=== PATIENT | female | born 1985 | race American Indian/Alaskan Native ===

== ENCOUNTER 2016-11-06 12:54 | Inpatient (IN) | payer BC ==
[2016-11-06] MEDS ORDERED: NORCO PO PRN (13:35)
[2016-11-06] MEDS: MORPHINE IV PRN (17:00)
[2016-11-06] MEDS: LACTATED RINGERS 1,000 ML IV SCH (17:00)
[2016-11-06] MEDS: LOVENOX SUB-Q SCH (21:26)
[2016-11-06] MEDS: ZOFRAN IV PRN (21:26)
[2016-11-07] MEDS: LACTATED RINGERS 1,000 ML IV SCH ×3 (00:02→17:22)
[2016-11-07] MEDS: MORPHINE IV PRN ×2 (00:31→07:43)
[2016-11-07 07:37] LABS: Magnesium 1.6 mg/dL (1.7-2.3); Phosphorous 2.6 mg/dL (2.5-4.5)
[2016-11-07] MEDS: ZOFRAN IV PRN ×2 (07:44→17:15)
[2016-11-07 10:23] LABS: Basophils % (Auto) 0.8 % (0.0-1.8); Eosinophils % (Auto) 6.3 % (0.0-4.3); Hematocrit 24.8 % (30.3-42.9); Hemoglobin 7.8 gm/dl (10.1-14.3); Mean Corpuscular HGB Conc 32 % (30-34); Platelet Count 282 K/mm3 (140-440); Red Blood Count 3.65 M/mm3 (3.65-5.03); Red Cell Distribution Width 19.6 % (13.2-15.2)
[2016-11-07 10:25] LABS: Mean Corpuscular Hemoglobin 21 pg (28-32); Mean Corpuscular Volume 68 fl (79-97)
[2016-11-07 10:35] LABS: Alanine Aminotransferase 27 units/L (7-56); Albumin 3.7 g/dL (3.9-5); Albumin/Globulin Ratio 1.4 %; Alkaline Phosphatase 77 units/L (35-129); BUN/Creatinine Ratio 8.33; Bilirubin,Total 0.8 mg/dL (0.1-1.2); Blood Urea Nitrogen 5 mg/dL (7-17); Calcium 8.3 mg/dL (8.4-10.2); Carbon Dioxide 23 mmol/L (22-30); Glucose 86 mg/dL (65-100); Total Protein 6.4 g/dL (6.3-8.2)
[2016-11-07 10:36] LABS: Chloride 107.2 mmol/L (98-107); Potassium 3.9 mmol/L (3.6-5.0); Sodium 142 mmol/L (137-145)
[2016-11-07 10:38] LABS: Anion Gap 16 mmol/L
--- NOTE | 2016-11-07 11:27 | Admit Criteria Form ---
Admission Criteria Documentation: DEHYDRATION Clinical Indications for Admission to Inpatient Care (Place 'X' for any and all applicable criteria): Admission is indicated for ANY ONE of the following (1)(2)(3)(4)(5): [ X]I. Inpatient admission required rather than observation care (see Dehydration: Observation Care guideline as appropriate) because of ANY ONE of the following: [ X]a) Vomiting that is severe or persistent [ ]b) Severe electrolyte abnormalities requiring inpatient care [ ]c) Hemodynamic instability [ ]d) IV fluid to replace significant ongoing losses (greater than 3 L/m2 per day (10) (11) [ ]e) Parenteral nutrition regimen that must be implemented on inpatient basis [X ]f) Other condition,treatment or monitoring requiring inpatient admission [ ]II. Serious cause for dehydration requiring acute hospitalization (eg, bowel obstruction, increased intracranial pressure, infectious cause) Extended stay beyond goal length of stay may be needed for(1)(3 )(4)(17): [ ]a) Chronic severe dehydration [ ]b) Persistent vital sign changes, severe electrolyte imbalance, or diagnosed cause of dehydration that requires continued hospitalization (eg, bowel obstruction, increased intracranial pressure) [ ]c) Older patients (65 years or older) [ ]d) Severe comorbid illness (eg, renal failure, heart failure, poorly controlled diabetes) The original [employer] content created by [employer] has been revised. The portions of the content which have been revised are identified through the use of italic text or in bold, and [facility] has neither reviewed nor approved the modified material. All other unmodified content is copyright [employer]. Please see references footnoted in the original [employer] edition 2016 Admission Criteria Met: Pending
--- NOTE | 2016-11-07 14:28 | History and Physical Report ---
History of Present Illness Date of examination: 11/07/16 Date of admission: 11/06/16 14:52 Chief complaint: Persisting Nausea and vomiting History of present illness: 31 yo F underwent laparoscopic sleeve gastrectomy on 10/22/2016. She was doing well at first but a few days ago she became nauseous and started vomiting. This became persistent and feels dehydrated. The n/v worsened overtime and was seen at the office and recommended to be admitted Denies abd pain, chest pain, diarrhea, fevers Past History Past Medical History: hypertension Past Surgical History: , Other (lap sleeve gastrectomy (Oct 11)) Social history: no significant social history Medications and Allergies Allergies Allergy/AdvReac Type Severity Reaction Status Date / Time hydrocodone AdvReac Hives Unverified 11/06/16 14:54 Active Meds: Active Medications Enoxaparin Sodium (Lovenox) 40 mg SUB-Q BID KEVEN Last Admin: 11/06/16 21:26 Dose: 40 mg Lactated Ringer's (Lactated Ringers) 1,000 mls @ 150 mls/hr IV DIRECT KEVEN Last Admin: 11/07/16 07:44 Dose: 150 mls/hr Morphine Sulfate (Morphine) 2 mg IV Q4H PRN PRN Reason: Pain, Moderate (4-6) Last Admin: 11/07/16 07:43 Dose: 2 mg Ondansetron HCl (Zofran) 4 mg IV Q8H PRN PRN Reason: Nausea And Vomiting Last Admin: 11/07/16 07:44 Dose: 4 mg Review of Systems - Constitutional weakness - Gastrointestinal abdominal pain (mild), nausea, vomiting Exam Vital Signs Temp Pulse Resp BP 98.1 F 77 16 121/60 11/06/16 16:00 11/06/16 16:00 11/06/16 16:00 11/06/16 16:00 Narrative exam: VSS, AF NAD Lungs Clear Heart RRR Abd soft,NT, ND, no rebound or guarding. Wounds OK Neuro: AAOx3 Results - Labs 11/07/16 10:04 11/07/16 10:04 Abnormal lab results 11/07/16 11/07/16 11/07/16 Range/Units 06:41 10:04 10:04 WBC 4.0 L (4.5-11.0) K/mm3 Hgb 7.8 L (10.1-14.3) gm/dl Hct 24.8 L (30.3-42.9) % MCV 68 L (79-97) fl MCH 21 L (28-32) pg RDW 19.6 H (13.2-15.2) % Lymph % (Auto) 37.0 H (13.4-35.0) % [place] % (Auto) 8.7 H (0.0-7.3) % Eos % (Auto) 6.3 H (0.0-4.3) % Chloride 107.2 H (98-107) mmol/L BUN 5 L (7-17) mg/dL Creatinine 0.6 L (0.7-1.2) mg/dL Calcium 8.3 L (8.4-10.2) mg/dL Magnesium 1.6 L (1.7-2.3) mg/dL Albumin 3.7 L (3.9-5) g/dL Diabetes panel 11/07/16 Range/Units 10:04 Sodium 142 (137-145) mmol/L Potassium 3.9 (3.6-5.0) mmol/L Chloride 107.2 H (98-107) mmol/L Carbon Dioxide 23 (22-30) mmol/L BUN 5 L (7-17) mg/dL Creatinine 0.6 L (0.7-1.2) mg/dL Glucose 86 (65-100) mg/dL Calcium 8.3 L (8.4-10.2) mg/dL AST 27 (5-40) units/L ALT 27 (7-56) units/L Alkaline Phosphatase 77 (35-129) units/L Total Protein 6.4 (6.3-8.2) g/dL Albumin 3.7 L (3.9-5) g/dL Calcium panel 11/07/16 11/07/16 Range/Units 06:41 10:04 Calcium 8.3 L (8.4-10.2) mg/dL Phosphorus 2.6 (2.5-4.5) mg/dL Albumin 3.7 L (3.9-5) g/dL Pituitary panel 11/07/16 Range/Units 10:04 Sodium 142 (137-145) mmol/L Potassium 3.9 (3.6-5.0) mmol/L Chloride 107.2 H (98-107) mmol/L Carbon Dioxide 23 (22-30) mmol/L BUN 5 L (7-17) mg/dL Creatinine 0.6 L (0.7-1.2) mg/dL Glucose 86 (65-100) mg/dL Calcium 8.3 L (8.4-10.2) mg/dL Adrenal panel 11/07/16 Range/Units 10:04 Sodium 142 (137-145) mmol/L Potassium 3.9 (3.6-5.0) mmol/L Chloride 107.2 H (98-107) mmol/L Carbon Dioxide 23 (22-30) mmol/L BUN 5 L (7-17) mg/dL Creatinine 0.6 L (0.7-1.2) mg/dL Glucose 86 (65-100) mg/dL Calcium 8.3 L (8.4-10.2) mg/dL Total Bilirubin 0.8 (0.1-1.2) mg/dL AST 27 (5-40) units/L ALT 27 (7-56) units/L Alkaline Phosphatase 77 (35-129) units/L Total Protein 6.4 (6.3-8.2) g/dL Albumin 3.7 L (3.9-5) g/dL Assessment and Plan 31 yo F with recent Lap Sleeve gastrectomy admited for intractable nausea vomiting Plan clears, IVF ressucitation lytes replacement nausea control UGIS - Patient Problems (1) Intractable nausea and vomiting Diagnosis Date: 11/07/16 Current Visit: Yes Status: Acute Qualifiers: Vomiting type: unspecified Qualified Code(s): R11.2 - Nausea with vomiting , unspecified
[2016-11-07] MEDS: LOVENOX SUB-Q SCH ×2 (17:21→22:15)
[2016-11-08] MEDS: ZOFRAN IV PRN ×2 (00:50→09:03)
[2016-11-08] MEDS: MORPHINE IV PRN ×2 (01:30→09:02)
[2016-11-08] MEDS: LACTATED RINGERS 1,000 ML IV SCH ×2 (01:35→09:03)
[2016-11-08] MEDS: LOVENOX SUB-Q SCH (09:49)
[2016-11-08] MEDS ORDERED: PHENERGAN PO PRN (10:42)
[2016-11-08] MEDS ORDERED: MAGNESIUM SULFATE IV ONE (10:45)
[2016-11-08] MEDS ORDERED: TRANSDERM-SCOP TD SCH (11:00)
--- NOTE | 2016-11-08 11:02 | Fluoroscopy Report ---
UPPER GI SERIES AND SMALL BOWEL FOLLOW-THROUGH: Patient with recent gastric stapling and hiatus hernia repair presenting with periodic emesis. The patient was initially given water-soluble contrast which passed readily into the stomach. The esophagus is not dilated and drained rapidly. Barium was then used for the additional evaluation. There is a somewhat thickened distal esophageal fold with distal deformity of the esophagus. No ulcerations identified. The gastric contour is somewhat diminished in volume consistent with stapling. There is no leakage and there is rapid exit of contrast from the stomach into the duodenum. No gastric or duodenal ulcer is identified. Barium was followed through the small bowel reaching the colon between an hour 8. No small bowel abnormality appreciated. IMPRESSIONS: 1. Intact gastric stapling. 2. Irregularity of the distal esophagus most likely secondary to the surgical procedure. Correlation with the surgical procedure advised. 3. Unremarkable proximal and mid small bowel with limited evaluation of distal small bowel.
[2016-11-08] MEDS ORDERED: MAGNESIUM SULFATE 2GM/50ML 50 ML IV ONE (12:00)
[2016-11-08] MEDS ORDERED: D5W/0.45% NACL/KCL 30 MEQ 1,000 ML IV SCH (12:00)
--- NOTE | 2016-11-08 12:49 | Progress Note ---
Assessment and Plan 31 yo F with intractable nausea and vomiting UGIS reviewed with radiologist. Shows no mechanical obstruction. We will maximize symptomatic control of nausea. Clears. Possible d/c later today - Patient Problems (1) Intractable nausea and vomiting Diagnosis Date: 11/07/16 Current Visit: Yes Status: Acute Qualifiers: Vomiting type: unspecified Qualified Code(s): R11.2 - Nausea with vomiting , unspecified Subjective Date of service: 11/08/16 Patient Reports: Positive: no new complaints, feels better (but still with some nausea/vomiting) Objective Vital Signs - 12hr 11/08/16 11/08/16 11/08/16 04:00 08:00 09:12 Temperature 99.8 F H 98.4 F Pulse Rate [ 85 78 From Monitor] Respiratory 18 18 Rate Blood Pressure 118/80 106/64 [Left Arm] O2 Sat by Pulse 97 99 Oximetry - General physical appearance no distress, no pain - Eyes PERRL - Respiratory normal respiratory effort, clear to auscultation - Abdomen soft, bowel sounds normal - Neurologic normal coordination, normal sensation - Labs 11/07/16 10:04 11/07/16 10:04 - Imaging Additional Studies: UGIS: showing no mechanical obstruction. Contrast in colon
[2016-11-08] MEDS: ATIVAN IV SCH ×2 (13:00→20:01)
[2016-11-08] MEDS: REGLAN IV SCH ×2 (13:00→17:00)
[2016-11-08 15:07] LABS: Basophils % (Auto) 0.7 % (0.0-1.8); Hematocrit 25.4 % (30.3-42.9); Mean Corpuscular HGB Conc 32 % (30-34); Platelet Count 276 K/mm3 (140-440); Red Blood Count 3.77 M/mm3 (3.65-5.03); Red Cell Distribution Width 19.1 % (13.2-15.2); White Blood Count 4.1 K/mm3 (4.5-11.0)
[2016-11-08 15:13] LABS: Mean Corpuscular Hemoglobin 21 pg (28-32); Mean Corpuscular Volume 68 fl (79-97)
[2016-11-08 15:27] LABS: Alanine Aminotransferase 22 units/L (7-56); Albumin 3.8 g/dL (3.9-5); Albumin/Globulin Ratio 1.4 %; Alkaline Phosphatase 78 units/L (35-129); Anion Gap 18 mmol/L; Bilirubin,Total 0.9 mg/dL (0.1-1.2); Blood Urea Nitrogen 3 mg/dL (7-17); Calcium 8.4 mg/dL (8.4-10.2); Carbon Dioxide 22 mmol/L (22-30); Chloride 99.4 mmol/L (98-107); Glucose 83 mg/dL (65-100); Potassium 3.4 mmol/L (3.6-5.0); Sodium 136 mmol/L (137-145); Total Protein 6.6 g/dL (6.3-8.2)
[2016-11-08] MEDS ORDERED: KCL 10MEQ/100ML 100 ML IV STA (16:00)
--- NOTE | 2016-11-08 17:07 | Discharge Summary ---
Providers - Providers Date of Admission: 11/06/16 14:52 Date of discharge: 11/08/16 Attending physician: ASAD VERA Primary care physician: FINISHING ROOM OPERATOR Hospitalization Reason for admission: Intractable nausea and vomiting Condition: Stable Disposition: DISCHARGED TO HOME OR SELFCARE - Discharge Diagnoses (1) Intractable nausea and vomiting Status: Acute Qualifiers: Vomiting type: unspecified Qualified Code(s): R11.2 - Nausea with vomiting , unspecified Core Measure Documentation - Palliative Care Palliative Care/ Comfort Measures: Not Applicable - Core Measures Any of the following diagnoses?: none Exam - Constitutional Vitals: Temp Pulse Resp BP Pulse Ox 98.4 F 78 18 106/64 99 11/08/16 08:00 11/08/16 08:00 11/08/16 08:00 11/08/16 08:00 11/08/16 09:12 General appearance: Present: no acute distress, well-nourished - EENT ENT: hearing intact, clear oral mucosa - Neck Neck: Present: supple, normal ROM - Respiratory Respiratory effort: normal Respiratory: bilateral: CTA - Cardiovascular Rhythm: regular - Extremities Extremities: pulses symmetrical, No edema - Abdominal General gastrointestinal: Present: soft, non-tender, non-distended, normal bowel sounds, other (wounds c/d/i) - Neurologic Neurologic: moves all extremities Plan Activity: advance as tolerated Weight Bearing Status: Full Weight Bearing Diet: other (Bariatric stage 1 and advance to stage 2 as tolerated) Wound: open to air, keep clean and dry Special Instructions: no heavy lifting Follow up with: ELLA JOY MD [Primary Care Provider] - 7 Days ASAD VERA MD [Staff Physician] - 7 Days
[2016-11-08 17:23] VITALS: BP 128/76
== END 2016-11-08 20:00 | disposition home or self-care (01) | DRG 641 ==
LOC: 3A 12:54 → UNDOADMIN 12:54 → 3A 14:52
PROVIDERS: ADMIT Specialist; ATTEND Specialist
DX: E86.0 Dehydration (principal); Z68.41 Body mass index [BMI] 40.0-44.9, adult; I10 Essential (primary) hypertension; R11.2 Nausea with vomiting, unspecified; Z90.3 Acquired absence of stomach [part of]; Z88.5 Allergy status to narcotic agent
CPT/HCPCS: 36415; 74249; 80053; 83735; 84100; 85025; J1650; J2060; J2270; J2405; J2765; J3475; J3480; J7120; Q0169; Q9963

== ENCOUNTER 2016-12-04 13:55 | Inpatient (IN) | payer BC ==
--- NOTE | 2016-12-04 17:22 | Admit Criteria Form ---
Admission Criteria Documentation: VOMITING Clinical Indications for Admission to Inpatient Care ( Place 'X' for any and all applicable criteria): Admission is indicated for ANY ONE of the following(1)(2)(3): [X ]I. Inpatient admission required rather than observation care because of ANY ONE of the following: [ ]i) Hemodynamic instability that is severe or persistent [X ]ii) Vomiting that is severe or persistent [ ]iii) Severe electrolyte abnormalities requiring inpatient care [ ]iv) Severe pain requiring acute inpatient management [ ]v) High fever or infection requiring inpatient admission as indicated by ANY ONE of the following(7)(8): [ ]1) Appropriate outpatient or observation care antimicrobial treatment unavailable, not effective, or not feasible [ ]2) Documented bacteremia [ ]3) Temp >104.9 degrees F (40.5 degrees C) (oral) [ ]4) Temp >103.1 degrees F (39.5 C) (oral) or <96.8 degrees F (36 C) (rectal) that does not respond to all emergency treatment measures [ ]vi) Acute renal failure [ ]vii) IV fluid to replace significant ongoing losses (greater than 3 L/m2 per day) [ ]viii) Parenteral nutrition regimen that must be implemented on inpatient basis [ ]ix) Other condition, treatment or monitoring requiring inpatient admission [ ]II. Complete or partial gastrointestinal obstruction [ ]III. Other cause of vomiting requiring hospitalization (eg, poisoning, increased intracranial pressure) [ ]IV. Vomiting due to significant metabolic derangement (eg, severe hypercalcemia, diabetic ketoacidosis) Extended stay beyond goal length of stay may be needed for(1)(4): [ ]a) Severe vomiting [ ]b) Persistent vomiting, vital sign changes, severe electrolyte imbalance , or diagnosed cause of vomiting that requires continued hospitalization (eg, gastrointestinal obstruction , increased intracranial pressure) [ ]c) Surgery to treat identified causes of vomiting (eg, bowel obstruction , intracranial process) [ ]d) Comorbid illness that requires inpatient care (eg, acute heart failure , renal failure) [ ]e) Need for inpatient endoscopy The original [facility] [employer] content created by [employer] has been revised. The portions of the content which have been revised are identified through the use of italic text or in bold, and [facility] [employer] has neither reviewed nor approved the modified material. All other unmodified content is copyright [facility]. Please see references footnoted in the original [facility] edition 2016 Admission Criteria Met: Yes
[2016-12-04] MEDS ORDERED: TYLENOL PO PRN (19:29)
[2016-12-04] MEDS ORDERED: MILK OF MAGNESIA PO PRN (19:29)
[2016-12-04] MEDS ORDERED: DULCOLAX PR PRN (19:29)
--- NOTE | 2016-12-04 20:01 | History and Physical Report ---
History of Present Illness Date of examination: 12/04/16 Date of admission: 12/04/16 14:37 Chief complaint: Vomiting For last 6 weeks off and on History of present illness: Patient is a 31 y/o AAF admitted directly from Dr Marcin Porras's office for persistent vomiting from Oct 22 2016 when she had a Gastric sleeve surgery.Unable to tolerate solids.No abdominal pain Past History Past Medical History: hypertension Past Surgical History: Other (Gastric Sleeve surgery) Social history: no significant social history, lives with family Family history: hypertension Medications and Allergies Allergies Allergy/AdvReac Type Severity Reaction Status Date / Time hydrocodone AdvReac Hives Unverified 11/06/16 14:54 Active Meds: Active Medications Acetaminophen (Tylenol) 650 mg PO Q4H PRN PRN Reason: Pain MILD(1-3)/Fever >100.5/ZEPEDA Bisacodyl (Dulcolax) 10 mg [place] QDAY PRN PRN Reason: Constipation unrelieved by MOM Enoxaparin Sodium (Lovenox) 40 mg SUB-Q QDAY KEVEN Hydromorphone HCl (Dilaudid) 1 mg IV Q3H PRN PRN Reason: Pain , Severe (7-10) Dextrose/Sodium Chloride (D5ns) 1,000 mls @ 100 mls/hr IV DIRECT KEVEN Magnesium Hydroxide (Milk Of Magnesia) 30 ml PO Q4H PRN PRN Reason: Constipation Ondansetron HCl (Zofran) 4 mg IV Q3H PRN PRN Reason: N/V unrelieved by Reglan Review of Systems All systems: negative Constitutional: weight loss (Lost 40 lbs sec to Gastric sleeve surgery) Gastrointestinal: nausea, vomiting Exam - Constitutional Vitals: Temp Pulse Resp BP Pulse Ox 98.7 F 72 18 144/83 97 12/04/16 14:45 12/04/16 14:45 12/04/16 14:45 12/04/16 14:45 12/04/16 17:32 General appearance: Present: no acute distress, well-nourished - EENT Eyes: Present: PERRL ENT: hearing intact, clear oral mucosa - Neck Neck: Present: supple, normal ROM - Respiratory Respiratory effort: normal Respiratory: bilateral: CTA - Cardiovascular Heart Sounds: Present: S1 & S2. Absent: rub, click - Extremities Extremities: pulses symmetrical, No edema Peripheral Pulses: within normal limits - Abdominal General gastrointestinal: Present: soft, non-tender, non-distended, normal bowel sounds Female genitourinary: Present: normal - Integumentary Integumentary: Present: clear, warm, dry - Musculoskeletal Musculoskeletal: gait normal, strength equal bilaterally - Psychiatric Psychiatric: appropriate mood/affect, intact judgment & insight - Neurologic Neurologic: CNII-XII intact, moves all extremities Results - Labs CBC & Chem 7: 12/05/16 05:50 12/05/16 05:50 Assessment and Plan - Patient Problems (1) Intractable nausea and vomiting Onset Date: 11/07/16 Current Visit: No Status: Acute Qualifiers: Vomiting type: V Plan to address problem: Sec to Gastric sleeve surgery.Had Barium studies which did not show any outlet obstruction.GI consulted for possible EGD.DDX ??Gastritis (2) Dehydration Current Visit: Yes Status: Acute Plan to address problem: IV fluids for now (3) Hypokalemia Current Visit: Yes Status: Acute Plan to address problem: Supplemented (4) HTN (hypertension) Current Visit: Yes Status: Chronic Qualifiers: Hypertension type: essential hypertension Qualified Code(s): I10 - Essential (primary) hypertension (5) DVT prophylaxis Current Visit: Yes Status: Acute Plan to address problem: Lovenox 40 mg sq qd
[2016-12-04 20:21] LABS: Basophils % (Auto) 1.2 % (0.0-1.8); Eosinophils % (Auto) 2.9 % (0.0-4.3); Hematocrit 25.9 % (30.3-42.9); Mean Corpuscular HGB Conc 31 % (30-34); Platelet Count 249 K/mm3 (140-440); Red Blood Count 3.87 M/mm3 (3.65-5.03); Red Cell Distribution Width 18.4 % (13.2-15.2); White Blood Count 4.3 K/mm3 (4.5-11.0)
[2016-12-04 20:27] LABS: Mean Corpuscular Hemoglobin 21 pg (28-32); Mean Corpuscular Volume 67 fl (79-97)
[2016-12-04] MEDS: ZOFRAN IV PRN (21:00)
[2016-12-04] MEDS: LOVENOX SUB-Q SCH (21:04)
[2016-12-04] MEDS: D5NS 1,000 ML IV SCH (21:04)
[2016-12-04] MEDS: DILAUDID IV PRN (22:42)
[2016-12-05 06:33] LABS: Basophils % (Auto) 1.2 % (0.0-1.8); Eosinophils % (Auto) 4.8 % (0.0-4.3); Hematocrit 23.9 % (30.3-42.9); Hemoglobin 7.6 gm/dl (10.1-14.3); Mean Corpuscular HGB Conc 32 % (30-34); Platelet Count 212 K/mm3 (140-440); Red Blood Count 3.58 M/mm3 (3.65-5.03); Red Cell Distribution Width 18.8 % (13.2-15.2); White Blood Count 3.5 K/mm3 (4.5-11.0)
[2016-12-05 06:34] LABS: Mean Corpuscular Hemoglobin 21 pg (28-32); Mean Corpuscular Volume 67 fl (79-97)
[2016-12-05 06:46] LABS: Alanine Aminotransferase 15 units/L (7-56); Albumin 3.5 g/dL (3.9-5); Albumin/Globulin Ratio 1.5 %; Alkaline Phosphatase 60 units/L (35-129); BUN/Creatinine Ratio 8.33; Bilirubin,Total 0.3 mg/dL (0.1-1.2); Blood Urea Nitrogen 5 mg/dL (7-17); Calcium 8.3 mg/dL (8.4-10.2); Carbon Dioxide 23 mmol/L (22-30); Glucose 105 mg/dL (65-100); Total Protein 5.8 g/dL (6.3-8.2)
[2016-12-05 06:47] LABS: Anion Gap 15 mmol/L; Chloride 102.7 mmol/L (98-107); Sodium 138 mmol/L (137-145)
[2016-12-05 06:52] LABS: Potassium 2.8 mmol/L (3.6-5.0)
[2016-12-05] MEDS: LOVENOX SUB-Q SCH (10:07)
[2016-12-05] MEDS: DILAUDID IV PRN ×4 (10:42→22:06)
[2016-12-05] MEDS: ZOFRAN IV PRN ×4 (10:43→22:07)
--- NOTE | 2016-12-05 11:23 | Progress Note ---
Assessment and Plan Assessment and plan: 1. Intractable nausea and vomiting. Etiology secondary to gastric sleeve surgery. Patient had barium studies which did not show any eyelid obstruction. Await GI consultation. 2. Acute renal failure. Etiology secondary to vasomotor nephropathy/ dehydration. Patient will continue with IV fluid hydration. 3. Hypokalemia. Replete potassium. 4. Hypertension. Continue antihypertensive medications as needed. 5. DVT prophylaxis. Lovenox daily. History Interval history: 31-year-old female with recent history of gastric sleeve surgery presents with intractable nausea and vomiting. Patient denies any hematemesis, hematochezia or melena. No diarrhea. Hospitalist Physical - Constitutional Vitals: Temp Pulse Resp BP Pulse Ox 98.1 F 58 L 20 106/60 98 12/05/16 08:00 12/05/16 08:00 12/05/16 10:42 12/05/16 08:00 12/05/16 08:00 General appearance: Present: no acute distress, well-nourished - EENT Eyes: Present: PERRL, EOM intact ENT: hearing intact, clear oral mucosa, dentition normal - Neck Neck: Present: supple, normal ROM - Respiratory Respiratory effort: normal Respiratory: bilateral: CTA - Cardiovascular Rhythm: regular Heart Sounds: Present: S1 & S2. Absent: gallop, rub - Extremities Extremities: no ischemia, No edema, Full ROM - Abdominal General gastrointestinal: soft, non-tender, non-distended, normal bowel sounds - Integumentary Integumentary: Present: clear, warm, dry - Neurologic Neurologic: CNII-XII intact, moves all extremities Results - Labs CBC & Chem 7: 12/05/16 05:50 12/05/16 05:50 Labs: Laboratory Last Values WBC 3.5 K/mm3 (4.5-11.0) L 12/05/16 05:50 RBC 3.58 M/mm3 (3.65-5.03) L 12/05/16 05:50 Hgb 7.6 gm/dl (10.1-14.3) L 12/05/16 05:50 Hct 23.9 % (30.3-42.9) L 12/05/16 05:50 MCV 67 fl (79-97) L 12/05/16 05:50 MCH 21 pg (28-32) L 12/05/16 05:50 MCHC 32 % (30-34) 12/05/16 05:50 RDW 18.8 % (13.2-15.2) H 12/05/16 05:50 Plt Count 212 K/mm3 (140-440) 12/05/16 05:50 Lymph % (Auto) 45.9 % (13.4-35.0) H 12/05/16 05:50 [place] % (Auto) 10.3 % (0.0-7.3) H 12/05/16 05:50 Eos % (Auto) 4.8 % (0.0-4.3) H 12/05/16 05:50 Baso % (Auto) 1.2 % (0.0-1.8) 12/05/16 05:50 Lymph # 1.6 K/mm3 (1.2-5.4) 12/05/16 05:50 [place] # 0.4 K/mm3 (0.0-0.8) 12/05/16 05:50 Eos # 0.2 K/mm3 (0.0-0.4) 12/05/16 05:50 Baso # 0.0 K/mm3 (0.0-0.1) 12/05/16 05:50 Seg Neutrophils % 37.8 % (40.0-70.0) L 12/05/16 05:50 Seg Neutrophils # 1.3 K/mm3 (1.8-7.7) L 12/05/16 05:50 Sodium 138 mmol/L (137-145) 12/05/16 05:50 Potassium 2.8 mmol/L (3.6-5.0) L* 12/05/16 05:50 Chloride 102.7 mmol/L (98-107) 12/05/16 05:50 Carbon Dioxide 23 mmol/L (22-30) 12/05/16 05:50 Anion Gap 15 mmol/L 12/05/16 05:50 BUN 5 mg/dL (7-17) L 12/05/16 05:50 Creatinine 0.6 mg/dL (0.7-1.2) L 12/05/16 05:50 Estimated GFR > 60 ml/min 12/05/16 05:50 BUN/Creatinine Ratio 8.33 % 12/05/16 05:50 Glucose 105 mg/dL (65-100) H 12/05/16 05:50 Hemoglobin A1c 4.9 % (4-6) 12/04/16 20:11 Calcium 8.3 mg/dL (8.4-10.2) L 12/05/16 05:50 Total Bilirubin 0.3 mg/dL (0.1-1.2) 12/05/16 05:50 AST 14 units/L (5-40) 12/05/16 05:50 ALT 15 units/L (7-56) 12/05/16 05:50 Alkaline Phosphatase 60 units/L (35-129) 12/05/16 05:50 Total Protein 5.8 g/dL (6.3-8.2) L 12/05/16 05:50 Albumin 3.5 g/dL (3.9-5) L 12/05/16 05:50 Albumin/Globulin Ratio 1.5 % 12/05/16 05:50
[2016-12-05] MEDS: KCL 10MEQ/100ML 10 MEQ/100 ML BAG IV SCH ×4 (11:46→19:06)
--- NOTE | 2016-12-05 14:25 | Event Note ---
Date: 12/05/16 Consult noted. Patient sent from Dr. Burch office s/p gastric sleeve surgery. Dr. Burch comes to [facility] and in the past prefers to see his own patients and perform testing himself. I have d/w Michael, primary nurse, and she will notify the primary MD to contact Dr. Burch. Please do not hesitate to call if needed. Thank You, Mayra Medina, ACNP-BC
--- NOTE | 2016-12-05 16:04 | Consultation ---
History of Present Illness Consult date: 12/05/16 - History of present illness History of present illness: Patient complains of persistent nause and vomiting x 1 month. Patient has been to the ER 3 times over the past month with the most recent visit being 2 day ago. Patient was also admitted to [facility] on 11/07/16 where she completed an upper GI series. Patient states that at first she was able to keep fluids down but couldn't tolerate solids. Over the past 2 weeks she hasn't been able to tolerate liquids. Patient has been consistently taking Reglan and Phenergan without relief of symptoms. Past History Past Medical History: GERD, hypertension, other (sleep apnea) Past Surgical History: Other (Gastric Sleeve surgery) Social history: no significant social history, lives with family Family history: hypertension Medications and Allergies Allergies Allergy/AdvReac Type Severity Reaction Status Date / Time hydrocodone AdvReac Hives Unverified 11/06/16 14:54 Active Meds: Active Medications Acetaminophen (Tylenol) 650 mg PO Q4H PRN PRN Reason: Pain MILD(1-3)/Fever >100.5/ZEPEAD Bisacodyl (Dulcolax) 10 mg [place] QDAY PRN PRN Reason: Constipation unrelieved by MOM Enoxaparin Sodium (Lovenox) 40 mg SUB-Q QDAY KEVEN Last Admin: 12/05/16 10:07 Dose: 40 mg Hydromorphone HCl (Dilaudid) 1 mg IV Q3H PRN PRN Reason: Pain , Severe (7-10) Last Admin: 12/05/16 15:39 Dose: 1 mg Dextrose/Sodium Chloride (D5ns) 1,000 mls @ 100 mls/hr IV DIRECT KEVEN Last Admin: 12/04/16 21:04 Dose: 100 mls/hr Magnesium Hydroxide (Milk Of Magnesia) 30 ml PO Q4H PRN PRN Reason: Constipation Ondansetron HCl (Zofran) 4 mg IV Q3H PRN PRN Reason: N/V unrelieved by Reglan Last Admin: 12/05/16 15:40 Dose: 4 mg Review of Systems - Constitutional other - Gastrointestinal nausea, vomiting Exam Vital Signs Temp Pulse Resp BP Pulse Ox 98.7 F 72 18 144/83 100 12/04/16 14:45 12/04/16 14:45 12/04/16 14:45 12/04/16 14:45 12/04/16 14:45 - General physical appearance Positive: well developed, well nourished - Respiratory Positive: normal expansion, normal respiratory effort - Abdomen Abdomen: Present: soft, bowel sounds normal, surgical scars - Psychiatric Psychiatric: appropriate mood/affect Results - Labs 12/05/16 05:50 12/05/16 05:50 Abnormal lab results 12/04/16 12/05/16 12/05/16 Range/Units 20:11 05:50 05:50 WBC 4.3 L 3.5 L (4.5-11.0) K/mm3 RBC 3.58 L (3.65-5.03) M/mm3 Hgb 8.0 L 7.6 L (10.1-14.3) gm/dl Hct 25.9 L 23.9 L (30.3-42.9) % MCV 67 L 67 L (79-97) fl MCH 21 L 21 L (28-32) pg RDW 18.4 H 18.8 H (13.2-15.2) % Lymph % (Auto) 36.6 H 45.9 H (13.4-35.0) % [place] % (Auto) 9.7 H 10.3 H (0.0-7.3) % Eos % (Auto) 4.8 H (0.0-4.3) % Seg Neutrophils % 37.8 L (40.0-70.0) % Seg Neutrophils # 1.3 L (1.8-7.7) K/mm3 Potassium 2.8 L* (3.6-5.0) mmol/L BUN 5 L (7-17) mg/dL Creatinine 0.6 L (0.7-1.2) mg/dL Glucose 105 H (65-100) mg/dL Calcium 8.3 L (8.4-10.2) mg/dL Total Protein 5.8 L (6.3-8.2) g/dL Albumin 3.5 L (3.9-5) g/dL Diabetes panel 12/04/16 12/05/16 Range/Units 20:11 05:50 Sodium 138 (137-145) mmol/L Potassium 2.8 L* (3.6-5.0) mmol/L Chloride 102.7 (98-107) mmol/L Carbon Dioxide 23 (22-30) mmol/L BUN 5 L (7-17) mg/dL Creatinine 0.6 L (0.7-1.2) mg/dL Glucose 105 H (65-100) mg/dL Hemoglobin A1c 4.9 (4-6) % Calcium 8.3 L (8.4-10.2) mg/dL AST 14 (5-40) units/L ALT 15 (7-56) units/L Alkaline Phosphatase 60 (35-129) units/L Total Protein 5.8 L (6.3-8.2) g/dL Albumin 3.5 L (3.9-5) g/dL Calcium panel 12/05/16 Range/Units 05:50 Calcium 8.3 L (8.4-10.2) mg/dL Albumin 3.5 L (3.9-5) g/dL Pituitary panel 12/05/16 Range/Units 05:50 Sodium 138 (137-145) mmol/L Potassium 2.8 L* (3.6-5.0) mmol/L Chloride 102.7 (98-107) mmol/L Carbon Dioxide 23 (22-30) mmol/L BUN 5 L (7-17) mg/dL Creatinine 0.6 L (0.7-1.2) mg/dL Glucose 105 H (65-100) mg/dL Calcium 8.3 L (8.4-10.2) mg/dL Adrenal panel 12/05/16 Range/Units 05:50 Sodium 138 (137-145) mmol/L Potassium 2.8 L* (3.6-5.0) mmol/L Chloride 102.7 (98-107) mmol/L Carbon Dioxide 23 (22-30) mmol/L BUN 5 L (7-17) mg/dL Creatinine 0.6 L (0.7-1.2) mg/dL Glucose 105 H (65-100) mg/dL Calcium 8.3 L (8.4-10.2) mg/dL Total Bilirubin 0.3 (0.1-1.2) mg/dL AST 14 (5-40) units/L ALT 15 (7-56) units/L Alkaline Phosphatase 60 (35-129) units/L Total Protein 5.8 L (6.3-8.2) g/dL Albumin 3.5 L (3.9-5) g/dL
[2016-12-05] MEDS: D5NS 1,000 ML IV SCH (19:05)
[2016-12-05] MEDS ORDERED: APRESOLINE IV PRN (21:10)
[2016-12-06] MEDS: DILAUDID IV PRN ×4 (01:07→21:46)
[2016-12-06] MEDS: ZOFRAN IV PRN ×3 (01:08→07:26)
--- NOTE | 2016-12-06 02:43 | Consultation ---
REFERRING PHYSICIAN: Efrain Hughes MD INDICATION: Nausea and vomiting. HISTORY OF PRESENT ILLNESS: The patient is a 31-year-old black female, status post gastric sleeve on 10/22/2016, now being seen for nausea and vomiting. The patient reports no history of nausea, vomiting, or other symptoms prior to having surgery. She reports since that time, she has had recurrent nausea, vomiting with eating or drinking. She reports no diarrhea or constipation. She denies any NSAID use. Denies any hematemesis or black tarry stools. The patient reports that since that time she has had evaluation for obstruction, which was negative. She reports she has also had a CT scan which was also negative. Upper GI small bowel follow through done a couple of weeks ago was negative. GI is consulted to aid in management. PAST MEDICAL HISTORY: Hypertension. PAST SURGICAL HISTORY: Status post recent gastric sleeve. MEDICATIONS: See chart. ALLERGIES: No known drug allergies. SOCIAL HISTORY: Denies alcohol, tobacco, or drug abuse. FAMILY HISTORY: Negative for colon cancer, IBD, or liver disease. REVIEW OF SYSTEMS: GENERAL: Reports mild weakness. HEENT: No visual complaints or tinnitus. PULMONARY: No shortness of breath. CARDIOVASCULAR: No chest pain. GASTROINTESTINAL: Reports nausea and vomiting. All points of 13-point review of systems otherwise negative. PHYSICAL EXAMINATION: VITAL SIGNS: Temperature of 98.3, pulse , respirations 18, blood pressure 134/86. GENERAL: Fairly nourished, obese black female, in no acute distress. HEENT: Pupils equal, round, reactive to light and accommodation. Extraocular movements intact. PULMONARY: Clear to auscultation bilaterally. CARDIOVASCULAR: Regular rate and rhythm. Normal S1, S2. ABDOMEN: Positive bowel sounds, soft. SKIN: No obvious rashes. LABORATORY DATA: Pertinent for white count of 3.5, hemoglobin and hematocrit of 7.6 and 23.9, platelet count of 212. Chem-7 pertinent for potassium of 2.8. LFTs within normal limits. ASSESSMENT AND PLAN: A 31-year-old black female, status post recent gastric sleeve in September, now recurrent nausea, vomiting with recent follow through exam showing no signs of obstruction. Possibility of peptic ulcer disease versus gastritis versus gallbladder versus functional versus other. PLAN: 1. PPI IV daily. 2. We will review imaging done recently. 3. Avoid NSAIDs and aspirin. 4. We will plan for EGD in a.m., with further recommendation based on the procedure results. JOB# [id number] CAB/NTS
[2016-12-06] MEDS: D5NS 1,000 ML IV SCH (04:25)
[2016-12-06] MEDS: BENADRYL IV PRN ×2 (06:29→21:45)
[2016-12-06] MEDS ORDERED: WATER FOR IRRIG STERILE IR ONE (07:19)
--- NOTE | 2016-12-06 07:58 | Anesthesia Day of Surgery ---
Anesthesia Day of Surgery - Day of Surgery Patient Examined: Yes Patient H&P Reviewed: Yes Patient is NPO: Yes
--- NOTE | 2016-12-06 07:58 | Anesthesia Consultation ---
Anesthesia Consult and Med Hx Date of service: 12/06/16 - Airway Anesthetic Teeth Evaluation: Good ROM Head & Neck: Adequate Mental/Hyoid Distance: Adequate Mallampati Class: Class II Intubation Access Assessment: Probably Good - Pulmonary Exam CTA: Yes - Cardiac Exam Cardiac Exam: RRR - Pre-Operative Health Status ASA Pre-Surgery Classification: ASA2 Proposed Anesthetic Plan: MAC - Pre-Anesthesia Comment Pre-Anesthesia Comments: Pt is sp gastric sleeve, presented today for N/V - Pulmonary Hx Smoking: No Hx Asthma: No Hx Pneumonia: No Hx Sleep Apnea: Yes (stopped use after gastric sleeve) - Cardiovascular System Hx Hypertension: Yes (SINCE 2011) - Central Nervous System Hx Psychiatric Problems: No - Endocrine Hx Renal Disease: No Hx Liver Disease: No Hx Non-Insulin Dependent Diabetes: No - Hematic Hx Anemia: Yes - Other Systems Hx Alcohol Use: Yes Hx Cancer: No - Additional Comments Anesthesia Medical History Comments: NAC
[2016-12-06] MEDS: NACL 0.9% 1000 ML 1,000 ML IV SCH ×2 (08:00→11:04)
[2016-12-06] MEDS ORDERED: DIPRIVAN 10 MG/ML IV ONE ×2 (08:58→09:25)
--- NOTE | 2016-12-06 09:34 | Post Anesthesia Evaluation ---
- Post Anesthesia Evaluation Patient Participated: Yes Airway Patent: Yes Stable Respiratory Function: Yes Nausea/Vomiting: No Temp > 96.8F: Yes Pain Manageable: Yes Adequeate Hydration: Yes Anesthesia Complications: No Block Receding Appropriately: Not Applicable Patient on Ventilator: No
--- NOTE | 2016-12-06 09:35 | Post Operative Note ---
Pre-op diagnosis: nausea, vomiting Post-op diagnosis: same Findings: EGD: small hiatal hernia - irregular z-line 34 cm (bx's) - moderate inflammation w/ single small ulcer along gastric sleeve (bx's) - mild antral gastritis (bx's) - negative other Procedure: EGD Anesthesia: MAC Surgeon: STEF CODY Estimated blood loss: none Pathology: list Specimen disposition: to lab Condition: stable Disposition: floor
--- NOTE | 2016-12-06 10:10 | Operative Report ---
PROCEDURE: EGD with cold biopsy. INDICATION: Nausea, vomiting. MEDICATIONS: Propofol per MACH[employer]ER. COMPLICATIONS: None. DESCRIPTION OF PROCEDURE: The patient brought to procedure suite. The patient had the procedure discussed with her at length. All risks, complications, and benefits discussed after which the patient signed for the procedure performed. The patient was placed in left lateral decubitus position. Mouth block was placed in the patient's oral cavity. After adequate sedation medication as above, endoscope was introduced into the mouth and brought to the level of the second portion of duodenum. Retroflexion view performed. The patient's vital signs remained stable throughout the procedure. FINDINGS: There was noted to be a small to medium hiatal hernia at GE junction, which was 34 cm from the gums. There was irregular Z line noted in that area. Biopsies were taken and sent to pathology. The remaining esophagus otherwise appeared to be normal. There was noted to be linear inflow momentary area noted along the greater curvature consistent with previous gastric sleeve. There was moderate inflammation with a single 6-7 mm ulceration noted along the length of the surgical site. Biopsies were taken and sent to pathology. There was mild antral gastritis noted. Biopsies were taken and sent to pathology. The remaining stomach otherwise appeared to be normal. The duodenum appeared to be normal. Retroflexion view performed in the stomach showed no other pathology other than noted above. The patient tolerated the procedure well. No complications during the procedure. IMPRESSION: 1. Hiatal hernia. 2. Irregular Z line, biopsies performed. 3. Otherwise, normal esophagus. 4. Area consistent with gastric sleeve noted. 5. Inflammation with ulceration noted along the gastric sleeve area with biopsies performed. 6. Antral gastritis, biopsy performed. 7. Otherwise, normal EGD. RECOMMENDATIONS: 1. Follow biopsy results. 2. Stool for H. pylori, if present treat. 3. PPI IV daily and start Carafate suspension q.i.d. 4. Start p.o. and advance as tolerated. 5. We will follow up in a.m. [facility]# [id number] CAB/NTS
[2016-12-06] MEDS: CARAFATE PO SCH ×3 (11:04→23:58)
[2016-12-06] MEDS: PROTONIX IV SCH (11:04)
[2016-12-06] MEDS: LOVENOX SUB-Q SCH (11:04)
--- NOTE | 2016-12-06 11:10 | Progress Note ---
Assessment and Plan Assessment and plan: 1. Intractable nausea and vomiting. Patient underwent EGD which revealed small hiatal hernia and moderate inflammation with single small ulcer along gastric sleeve. Mild antral gastritis and irregular Z line 34cm. continue PPI IV daily and Carafate suspension 4 times a day. Start po and advanced as tolerated. 2. Acute renal failure. Etiology secondary to vasomotor nephropathy/ dehydration. Patient will continue with IV fluid hydration. 3. Hypokalemia. Replete potassium. 4. Hypertension. Continue antihypertensive medications as needed. 5. DVT prophylaxis. Lovenox daily. History Interval history: 31-year-old female with recent history of gastric sleeve surgery presents with intractable nausea and vomiting. Patient denies any hematemesis, hematochezia or melena. No diarrhea. Hospitalist Physical - Constitutional Vitals: Temp Pulse Resp BP Pulse Ox 98.5 F 85 16 145/87 98 12/06/16 09:26 12/06/16 09:42 12/06/16 09:42 12/06/16 09:42 12/06/16 09:42 General appearance: Present: no acute distress, well-nourished - EENT Eyes: Present: PERRL, EOM intact ENT: hearing intact, clear oral mucosa, dentition normal - Neck Neck: Present: supple, normal ROM - Respiratory Respiratory effort: normal Respiratory: bilateral: CTA - Cardiovascular Rhythm: regular Heart Sounds: Present: S1 & S2. Absent: gallop, rub - Extremities Extremities: no ischemia, No edema, Full ROM - Abdominal General gastrointestinal: soft, non-tender, non-distended, normal bowel sounds - Integumentary Integumentary: Present: clear, warm, dry - Neurologic Neurologic: CNII-XII intact, moves all extremities Results - Labs CBC & Chem 7: 12/05/16 05:50 12/05/16 05:50 Labs: Laboratory Last Values WBC 3.5 K/mm3 (4.5-11.0) L 12/05/16 05:50 RBC 3.58 M/mm3 (3.65-5.03) L 12/05/16 05:50 Hgb 7.6 gm/dl (10.1-14.3) L 12/05/16 05:50 Hct 23.9 % (30.3-42.9) L 12/05/16 05:50 MCV 67 fl (79-97) L 12/05/16 05:50 MCH 21 pg (28-32) L 12/05/16 05:50 MCHC 32 % (30-34) 12/05/16 05:50 RDW 18.8 % (13.2-15.2) H 12/05/16 05:50 Plt Count 212 K/mm3 (140-440) 12/05/16 05:50 Lymph % (Auto) 45.9 % (13.4-35.0) H 12/05/16 05:50 [place]bour % (Auto) 10.3 % (0.0-7.3) H 12/05/16 05:50 Eos % (Auto) 4.8 % (0.0-4.3) H 12/05/16 05:50 Baso % (Auto) 1.2 % (0.0-1.8) 12/05/16 05:50 Lymph # 1.6 K/mm3 (1.2-5.4) 12/05/16 05:50 [place]bour # 0.4 K/mm3 (0.0-0.8) 12/05/16 05:50 Eos # 0.2 K/mm3 (0.0-0.4) 12/05/16 05:50 Baso # 0.0 K/mm3 (0.0-0.1) 12/05/16 05:50 Seg Neutrophils % 37.8 % (40.0-70.0) L 12/05/16 05:50 Seg Neutrophils # 1.3 K/mm3 (1.8-7.7) L 12/05/16 05:50 Sodium 138 mmol/L (137-145) 12/05/16 05:50 Potassium 2.8 mmol/L (3.6-5.0) L* 12/05/16 05:50 Chloride 102.7 mmol/L (98-107) 12/05/16 05:50 Carbon Dioxide 23 mmol/L (22-30) 12/05/16 05:50 Anion Gap 15 mmol/L 12/05/16 05:50 BUN 5 mg/dL (7-17) L 12/05/16 05:50 Creatinine 0.6 mg/dL (0.7-1.2) L 12/05/16 05:50 Estimated GFR > 60 ml/min 12/05/16 05:50 BUN/Creatinine Ratio 8.33 % 12/05/16 05:50 Glucose 105 mg/dL (65-100) H 12/05/16 05:50 Hemoglobin A1c 4.9 % (4-6) 12/04/16 20:11 Calcium 8.3 mg/dL (8.4-10.2) L 12/05/16 05:50 Total Bilirubin 0.3 mg/dL (0.1-1.2) 12/05/16 05:50 AST 14 units/L (5-40) 12/05/16 05:50 ALT 15 units/L (7-56) 12/05/16 05:50 Alkaline Phosphatase 60 units/L (35-129) 12/05/16 05:50 Total Protein 5.8 g/dL (6.3-8.2) L 12/05/16 05:50 Albumin 3.5 g/dL (3.9-5) L 12/05/16 05:50 Albumin/Globulin Ratio 1.5 % 12/05/16 05:50
[2016-12-06 12:02] LABS: Anion Gap 15 mmol/L; BUN/Creatinine Ratio 2.85; Blood Urea Nitrogen 2 mg/dL (7-17); Calcium 8.2 mg/dL (8.4-10.2); Carbon Dioxide 25 mmol/L (22-30); Chloride 101.2 mmol/L (98-107); Glucose 85 mg/dL (65-100); Potassium 3.3 mmol/L (3.6-5.0); Sodium 138 mmol/L (137-145)
--- NOTE | 2016-12-06 12:30 | Progress Note ---
Assessment and Plan Continue to hydrate patient. Continue carafate for gastric ulcer. Will start patient on hyoscyamine sulfate Subjective Date of service: 12/06/16 Patient Reports: Positive: no new complaints, nausea Objective Vital Signs - 12hr 12/06/16 12/06/16 12/06/16 07:33 08:09 09:26 Temperature 98.4 F 98.4 F 98.5 F Pulse Rate 74 74 109 H Respiratory 17 17 15 Rate Blood Pressure 108/76 108/76 114/84 O2 Sat by Pulse 98 98 97 Oximetry 12/06/16 12/06/16 09:36 09:42 Temperature Pulse Rate 89 85 Respiratory 18 16 Rate Blood Pressure 133/87 145/87 O2 Sat by Pulse 97 98 Oximetry - General physical appearance well developed, well nourished, no pain - Respiratory normal expansion, normal respiratory effort - Abdomen surgical scars - Psychiatric oriented to time, oriented to person, oriented to place, speech is normal, memory intact - Labs 12/05/16 05:50 12/06/16 11:15 Diabetes panel 12/06/16 Range/Units 11:15 Sodium 138 (137-145) mmol/L Potassium 3.3 L (3.6-5.0) mmol/L Chloride 101.2 (98-107) mmol/L Carbon Dioxide 25 (22-30) mmol/L BUN 2 L (7-17) mg/dL Creatinine 0.7 (0.7-1.2) mg/dL Glucose 85 (65-100) mg/dL Calcium 8.2 L (8.4-10.2) mg/dL Calcium panel 12/06/16 Range/Units 11:15 Calcium 8.2 L (8.4-10.2) mg/dL Pituitary panel 12/06/16 Range/Units 11:15 Sodium 138 (137-145) mmol/L Potassium 3.3 L (3.6-5.0) mmol/L Chloride 101.2 (98-107) mmol/L Carbon Dioxide 25 (22-30) mmol/L BUN 2 L (7-17) mg/dL Creatinine 0.7 (0.7-1.2) mg/dL Glucose 85 (65-100) mg/dL Calcium 8.2 L (8.4-10.2) mg/dL Adrenal panel 12/06/16 Range/Units 11:15 Sodium 138 (137-145) mmol/L Potassium 3.3 L (3.6-5.0) mmol/L Chloride 101.2 (98-107) mmol/L Carbon Dioxide 25 (22-30) mmol/L BUN 2 L (7-17) mg/dL Creatinine 0.7 (0.7-1.2) mg/dL Glucose 85 (65-100) mg/dL Calcium 8.2 L (8.4-10.2) mg/dL
[2016-12-06] MEDS: LEVSIN SL SL SCH ×2 (15:53→22:04)
[2016-12-06] MEDS: NORMODYNE PO SCH (21:46)
[2016-12-07] MEDS: DILAUDID IV PRN ×2 (01:35→05:20)
[2016-12-07] MEDS: BENADRYL IV PRN (05:20)
[2016-12-07] MEDS: CARAFATE PO SCH ×2 (05:24→12:55)
[2016-12-07] MEDS: LEVSIN SL SL SCH ×2 (05:28→13:33)
[2016-12-07] MEDS: NACL 0.9% 1000 ML 1,000 ML IV SCH (05:29)
[2016-12-07 08:25] VITALS: BP 107/64
--- NOTE | 2016-12-07 09:12 | Discharge Summary ---
Providers - Providers Date of Admission: 12/04/16 14:37 Date of discharge: 12/07/16 Attending physician: THUAN LUGO 12/04/16 Consult to Case Management [CONS] Routine Services Needed at Discharge: Home Health Services Notified:: yes Phone number called:: on floor Was contact made?: Yes If yes, spoke with:: jackeline Time called:: 12:10 12/04/16 19:29 Consult to Physician [CONS] Routine Consulting Provider: GLENN GALINDO Reason For Exam: intractable vomiting s/p gastric sleeve Place consult to:: gastro Notified:: office Phone number called:: [phone] Was contact made?: Yes If yes, spoke with:: wilbert Time called:: 12:05 12/04/16 19:56 Consult to Physician [CONS] Routine Consulting Provider: MARCIN PORRAS Reason For Exam: gastric sleeve Place consult to:: bariatric Notified:: office Phone number called:: [phone] Was contact made?: Yes If yes, spoke with:: jesus Time called:: 11:57 Primary care physician: TOOL REPAIRER Hospitalization Reason for admission: n/v Hospital course: Patient is a 31 y/o AAF admitted directly from Dr Marcin Porras's office for persistent vomiting from Oct 22 2016 when she had a Gastric sleeve surgery. Patient was Unable to tolerate solids. She denied abdominal pain. Patient was seen by Dr. Porras and Dr. Xavier of GI. Patient underwent EGD which revealed small hiatal hernia, irregular Z line 34 cm, moderate inflammation with single small ulcer along gastric sleeve with biopsies taken and mild antral gastritis. Recommendations were for PPI and Carafate suspension. Patient's diet was advanced to full. After patient was able to tolerate diet, it was felt that she had received maximal hospital benefit for discharge home. Patient is to follow-up with Dr. Porras and Dr. Xavier. The case discharge time 35 minutes. Disposition: DISCHARGED TO HOME OR SELFCARE Time spent for discharge: 35 - Discharge Diagnoses (1) Gastric ulcer Status: Acute Qualifiers: Gastric ulcer chronicity: G (2) Gastritis Status: Acute Qualifiers: Gastritis type: G Chronicity: C Gastritis bleeding: G (3) HTN (hypertension) Status: Chronic Qualifiers: Hypertension type: essential hypertension Qualified Code(s): I10 - Essential (primary) hypertension (4) Intractable nausea and vomiting Status: Resolved Qualifiers: Vomiting type: V Core Measure Documentation - Palliative Care Palliative Care/ Comfort Measures: Not Applicable - Core Measures Any of the following diagnoses?: none Exam - Constitutional Vitals: Temp Pulse Resp BP Pulse Ox 85 F L 85 20 107/64 99 12/07/16 08:00 12/07/16 08:00 12/07/16 08:00 12/07/16 08:00 12/07/16 08:00 General appearance: Present: no acute distress, well-nourished - EENT Eyes: Present: PERRL ENT: hearing intact, clear oral mucosa - Neck Neck: Present: supple, normal ROM - Respiratory Respiratory effort: normal Respiratory: bilateral: CTA - Cardiovascular Heart Sounds: Present: S1 & S2. Absent: rub, click - Extremities Extremities: pulses symmetrical, No edema Peripheral Pulses: within normal limits - Abdominal General gastrointestinal: Present: soft, non-tender, non-distended, normal bowel sounds Female genitourinary: Present: normal - Integumentary Integumentary: Present: clear, warm, dry - Musculoskeletal Musculoskeletal: gait normal, strength equal bilaterally - Psychiatric Psychiatric: appropriate mood/affect, intact judgment & insight - Neurologic Neurologic: CNII-XII intact, moves all extremities Plan Activity: no restrictions Weight Bearing Status: Full Weight Bearing Diet: regular Follow up with: PRIMARY CARE, [Primary Care Provider] - 7 Days MARCIN PORRAS MD [Staff Physician] - 7 Days NORMAN VILLAVICENCIO MD [Staff Physician] - 7 Days Prescriptions: Hyoscyamine Subl [Levsin Sl 0.125 TAB] 0.125 mg SL Q8H #30 tablet Labetalol [Normodyne TAB] 100 mg PO BID #60 tablet Pantoprazole [Protonix] 40 mg PO BID #60 tablet Sucralfate [Carafate] 1 gm PO Q6HR #120 oral.[email or web address]
[2016-12-07] MEDS: PROTONIX IV SCH (09:32)
[2016-12-07] MEDS: LOVENOX SUB-Q SCH (09:32)
[2016-12-07] MEDS: NORMODYNE PO SCH (09:33)
== END 2016-12-07 17:20 | disposition home or self-care (01) | DRG 391 ==
LOC: UNDOADMIN 13:55 → 3A 13:55
PROVIDERS: ADMIT Internal Medicine; ATTEND Hospitalist
PROC: 0DB48ZX Excision of Esophagogastric Junction, Via Natural or Artificial Opening Endoscopic, Diagnostic (ICD-10-PCS; principal; 2016-12-06)
PROC: 0DB68ZX Excision of Stomach, Via Natural or Artificial Opening Endoscopic, Diagnostic (ICD-10-PCS; 2016-12-06)
DX: K91.0 Vomiting following gastrointestinal surgery (principal); N17.0 Acute kidney failure with tubular necrosis; K25.3 Acute gastric ulcer without hemorrhage or perforation; Z68.41 Body mass index [BMI] 40.0-44.9, adult; E87.6 Hypokalemia; I10 Essential (primary) hypertension; K21.9 Gastro-esophageal reflux disease without esophagitis; G47.30 Sleep apnea, unspecified; K44.9 Diaphragmatic hernia without obstruction or gangrene; Y83.8 Other surgical procedures as the cause of abnormal reaction of the patient, or of later complication, without mention of misadventure at the time of the procedure; K29.70 Gastritis, unspecified, without bleeding; E66.01 Morbid (severe) obesity due to excess calories; Z88.6 Allergy status to analgesic agent; Z82.49 Family history of ischemic heart disease and other diseases of the circulatory system; Y92.89 Other specified places as the place of occurrence of the external cause
CPT/HCPCS: 36415; 80048; 80053; 81025; 83036; 85025; 88305; 88312; 88342; C9113; J0360; J1170; J1200; J1650; J2405; J2704; J3480; J7030; J7042